=== PATIENT | male | born 1940 | race Caucasian/White ===

== ENCOUNTER 2017-07-22 08:24 | Outpatient (CLI) | payer MEDICARE, BC ==
[2017-07-22] MEDS ORDERED: Iopamidol 370 76% 100 ML VIAL ONE (11:39)
--- NOTE | 2017-07-22 11:39 | CT ---
CT OF ABDOMEN AND PELVIS: Date: 07-22-2017 Comparison: PET CT 02-08-17 History: Lymphoma. Technique: Serial axial CT imaging is obtained at 5 mm intervals from lung bases through the pubic sy mphysis with intravenous and oral contrast. Coronal reformatted imaging obtained. FINDINGS: The imaged lung bases are unremarkable. No free intraperitoneal air or fluid. There is no focal liver lesion. The gallbladder, pancreas, spleen, and adrenal glands are unremarkabl e. The spleen is normal in size, measuring up to 12.5 cm. Kidneys are unremarkable aside from an upper pole cyst on the right. There is small hiatal hernia. There is diverticulosis of the descending colon and sigmoid colon with no evidence for diverticulitis . No evidence for bowel inflammatory change or bowel obstruction. Appendix is unremarkable. The prior PET CT performed 02-08-17 demonstrated extensive retroperitoneal lymphadenopathy. On today's exam, there are multiple mildly prominent retroperitoneal lymph nodes, markedly improved when compar ed to the prior examination. There is an aortocaval node on axial image 41 measuring approximately 1 cm in short axis dimension, decreased from 2.8 cm on the prior exam. There is a soft tissue mass in the right lower quadrant mesentery on image 55, measuring approximatel y 1.4 cm in short axis dimension. This is markedly decreased in size when compared to the prior study , at which time this lesion measured 3.5 x 5.7 cm. No enlarged inguinal lymph nodes are present. No enlarged pelvic side wall nodes noted. Prior study demonstrated small volume free fluid in the pelvis which is no longer present. There is a tiny nodular density in the perirectal fat on axial image 85 measuring 5 mm posteriorly on the right , decreased in size when compared to the prior study at which time it measured in the 1 cm range. There is atherosclerotic calcification of the abdominal aorta and its branches. There is a focal area of stranding of the subcutaneous fat in the ventral abdomen anteriorly to the r ight of midline, suggesting an area of subcutaneous injection. There is a sclerotic lesion within the proximal right femur which is stable and likely on the basis o f a nonspecific small chondroid lesion, grossly unchanged when compared to study dating back to 7. There is multilevel lumbar spine degenerative change present. IMPRESSION: There is retroperitoneal lymphadenopathy and there is a right lower quadrant soft tissue mass, all im proved significantly since the prior examination, evidence of lymphoma with response to therapy. Cont inued follow up imaging is advised. POS: [facility]
== END 2017-07-22 08:25 | disposition home or self-care (01) ==
LOC: CT 08:24
PROVIDERS: ATTEND Internal Medicine Medical Oncology
DX: C83.33 Diffuse large B-cell lymphoma, intra-abdominal lymph nodes (principal); R59.0 Localized enlarged lymph nodes
CPT/HCPCS: 74177

== ENCOUNTER 2017-08-14 06:44 | Outpatient (CLI) | payer MEDICARE, BC ==
--- NOTE | 2017-08-14 10:47 | PET ---
PET SCAN WITH CT ATTENUATION CORRECTION: HISTORY: Large B cell lymphoma. COMPARISON: 07/23/16, 02/08/17. TECHNIQUE: PET scanning with CT attenuation correction is performed from the base of the brain to the proximal t highs following the intravenous administration of 11.47 mCi F18-FDG. FINDINGS: HEAD/NECK: There is interval development of increased FDG localization anterior to the upper cervical spine vert ebral bodies. This abnormal FDG localization appears to be in the prevertebral or retropharyngeal spa ce and has a maximum SUV ranging between 3.4-4.3. This abnormality is noted from C1-C3, as well as in the distal cervical spine/cervicothoracic junction. Better interrogation with postcontrast soft tiss ue neck CT is recommended. CHEST: No abnormal FDG localization. ABDOMEN: No abnormal FDG localization. The previously noted retroperitoneal hypermetabolic activity has resolv ed. PELVIS: The previously noted hypermetabolic activity adjacent to the right iliac artery is no longer evident. OSSEOUS STRUCTURES: No abnormal FDG localization in the osseous structures. IMPRESSION: 1. Interval response to therapy. The previously noted retroperitoneal hypermetabolic lymph nodes are no longer appreciated. 2. Interval development of hypermetabolic activity involving the prevertebral soft tissue in the upp er and lower cervical spine/cervicothoracic junction. Postcontrast soft tissue neck CT is recommended . POS: [facility]
== END 2017-08-14 06:45 | disposition home or self-care (01) ==
LOC: PET 06:44
PROVIDERS: ATTEND Internal Medicine Medical Oncology
DX: C85.90 Non-Hodgkin lymphoma, unspecified, unspecified site (principal); R93.8 Abnormal findings on diagnostic imaging of other specified body structures
CPT/HCPCS: 78815; A9552

== ENCOUNTER 2017-08-21 09:42 | Outpatient (CLI) | payer MEDICARE, BC ==
[2017-08-21] MEDS ORDERED: Iopamidol 370 76% 100 ML VIAL ONE (13:03)
== END 2017-08-21 09:43 | disposition home or self-care (01) ==
LOC: BICCT 09:42
PROVIDERS: ATTEND Internal Medicine Medical Oncology
DX: C85.90 Non-Hodgkin lymphoma, unspecified, unspecified site (principal)
CPT/HCPCS: 70492

== ENCOUNTER 2018-02-03 11:22 | Outpatient (CLI) | payer MEDICARE, BC ==
--- NOTE | 2018-02-03 14:39 | PET ---
PET CT SKULL TO MID THIGH: CLINICAL HISTORY: Diffuse B-cell lymphoma. COMPARISON: Reference is made to prior PET CT, 08/14/17; CT neck 08/21/17 also referenced. FINDINGS: There is appropriate biodistribution of radiotracer activity. No evidence of hypermetabolic adenopathy of the imaged neck, chest, abdomen, and pelvis. No hypermet abolic masses are seen. There is diffuse vascular calcification. Right chest port is in place. Right renal cyst formation i s seen. There is moderate retained fecal material throughout the colon without evidence of colonic d iverticulosis. IMPRESSION: No scintigraphic evidence of metabolically active lymphoma. Deauville criteria score of 1. POS: [facility]
== END 2018-02-03 11:23 | disposition home or self-care (01) ==
LOC: PET 11:22
PROVIDERS: ATTEND Internal Medicine Medical Oncology
DX: C83.33 Diffuse large B-cell lymphoma, intra-abdominal lymph nodes (principal)
CPT/HCPCS: 78815; A9552

== ENCOUNTER 2018-08-18 11:15 | Outpatient (CLI) | payer MEDICARE, BC ==
--- NOTE | 2018-08-19 09:19 | PET ---
PET CT FROM VERTEX OF SKULL THROUGH MID THIGH: INDICATION: History of lymphoma. COMPARISON: Prior PET CT dated 02/03/2018. RADIOPHARMACEUTICAL: 12.5 mCi of F18-FDG IV. TECHNIQUE: PET CT Was obtained from the vertex of the skull through the mid thighs following IV administration o f the radiopharmaceutical. The CT images were obtained for attenuation correction purposes only. FINDINGS: HEAD AND NECK: There is a mild region of mild hypermetabolic uptake involving the left palatine tonsil with a peak S UV activity of 4.85 and mean activity of 4.65. The peak background liver activity was 3.4 and 3.04. No additional hypermetabolic lymphadenopathy or mass is seen within the head and neck region. THORAX: No hypermetabolic mediastinal, hilar, or axillary lymphadenopathy is evident within the thorax. Ther e is mild bilateral male gynecomastia. No hypermetabolic pulmonary nodule or pleural effusion is dem onstrated. ABDOMEN AND PELVIS: No hypermetabolic mass or lymphadenopathy is evident within the abdomen. No hypermetabolic ascites i s present. SKIN AND OSSEOUS STRUCTURES: No hypermetabolic skin or osseous lesion is evident. There is a stable sclerotic lesion involving th e posterior right proximal femur that has been stable since 2016 and is suspicious for a low-grade ch ondroid lesion. There are scattered bone islands involving the axial skeleton. There is a stable co mpression abnormality of L2. IMPRESSION: 1. Deauville score of X. There is a mildly hypermetabolic region of increased activity involving th e left palatine tonsils which could be reactive in nature and not related to lymphoma. This was not present on the comparison examination. Recommend correlation with direct visualization and followup PET imaging. 2. No evidence of hypermetabolic lymphadenopathy is seen within the remaining aspects of the head an d neck, thorax, abdomen and pelvis, and skin and osseous structures. POS: [facility]
== END 2018-08-18 11:16 | disposition home or self-care (01) ==
LOC: PET 11:15
PROVIDERS: ATTEND Internal Medicine Medical Oncology
DX: C85.10 Unspecified B-cell lymphoma, unspecified site (principal); R94.8 Abnormal results of function studies of other organs and systems
CPT/HCPCS: 78815; A9552

== ENCOUNTER 2019-03-05 07:22 | Outpatient (CLI) | payer MEDICARE, BC ==
--- NOTE | 2019-03-05 09:50 | CT ---
CT OF THE CHEST AND ABDOMEN AND PELVIS WITH IV CONTRAST: INDICATION: Lymphoma. COMPARISON: PET CT dated 08/18/[address] of the chest, abdomen, and pelvis dated 04/14/2017. FINDINGS: Small sub-4 mm ground-glass nodule within the right lung apex is stable since 2017. No suspicious pu lmonary nodule is seen within the remaining visualized portions of the right upper lobe, right middle lobe, or right lower lobe. No suspicious pulmonary nodule is seen within the left lower lobe, lingu la, or left upper lobe. There is a right chest wall port in place. No pathologically enlarged lymph nodes are evident. No a xillary lymphadenopathy is evident. ABDOMEN AND PELVIS: No focal hepatic lesion is evident. Pancreas and adrenal glands are normal-appearing. The spleen me asures 12 cm in length. There is a stable 2.3 cm superior pole right renal cyst. Adrenal glands are normal-appearing. No free fluid or pathologically enlarged lymph nodes are evident. There are moderate calcifications involving the abdominopelvic vasculature. The bladder is decompressed. There are a few scattered diverticula involving the colon without evide nce of active diverticulitis. There is a normal retrocecal appendix. No pathologically enlarged lymph nodes are evident within the pelvis. No pathologically enlarged lym ph nodes are seen within the inguinal regions. There are fat-containing inguinal hernias bilaterally . There is a stable small sclerotic lesion measuring 1.6 cm within the proximal right femur likely refl ecting a small fiber osseous lesion. There are small bone islands within the left ileum and left sac rum. Compression abnormality of L2 is stable. Small bone island within L1 is stable. Left T5 bone island is stable. There is a bony hemangioma within the right aspect of T10 which is stable. IMPRESSION: No evidence of pathologically enlarged lymph nodes seen involving the chest, abdomen, and pelvis. POS: [facility]
[2019-03-05] MEDS ORDERED: ISOVUE-370 76%-LOCM 1 ML ONE (16:23)
== END 2019-03-05 07:23 | disposition home or self-care (01) ==
LOC: BICCT 07:22
PROVIDERS: ATTEND Internal Medicine Medical Oncology
DX: C85.90 Non-Hodgkin lymphoma, unspecified, unspecified site (principal)
CPT/HCPCS: 71260; 74177

== ENCOUNTER 2020-01-11 07:25 | Outpatient (CLI) | payer MEDICARE, BC ==
--- NOTE | 2020-01-11 08:43 | CT ---
CT CHEST AND ABDOMEN AND PELVIS WITH IV CONTRAST: Oral contrast was given. Multiplanar reconstruction. INDICATION: Staging lymphoma. COMPARISON: Comparison is made to CT chest, abdomen, and pelvis dated 03/05/2019. FINDINGS: CT CHEST: Lung sanchez are clear. No infiltrate or effusion. Mediastinum is unremarkable. No adenopathy. Osseous structures are unremarkable and stable. Small bone island within the T5 vertebra is stable and sclerosis along the inferior end plate of T7 is stab le. Degenerative changes in the spine appear unchanged. No axillary adenopathy. IMPRESSION: Unremarkable CT chest. No interval change. CT ABDOMEN AND PELVIS: Liver, spleen, and pancreas unremarkable. Stomach and duodenum unremarkable. Adrenal glands normal and stable. Kidneys unremarkable. A 2.3 cm cyst in the superior right kidney is stable. Small bowel loops appear normal. Colon unremarkable. Diverticulosis of the left colon again noted. No evidence of diverticulitis. Aorta normal caliber with atherosclerotic calcification. No evidence of abdominal or retroperitoneal adenopathy. Images through the pelvis show a contracted bladder. Prostate is unremarkable. The osseous structur es are stable. The sclerotic lesion in the proximal right femur is unchanged. Tiny bone islands in the left ileum and sacrum unchanged. Anterior wedge compression of the L2 vertebra is stable. Bone islands at L1 and L2 vertebrae appear unchanged. There is no evidence of inguinal adenopathy. IMPRESSION: Unremarkable CT abdomen and pelvis. No interval change. POS: [facility]
[2020-01-11] MEDS ORDERED: Iopamidol-370 76% 500 ML 1 ML ONE (15:27)
== END 2020-01-11 07:26 | disposition home or self-care (01) ==
LOC: BICCT 07:25
PROVIDERS: ATTEND Internal Medicine Medical Oncology
DX: C83.33 Diffuse large B-cell lymphoma, intra-abdominal lymph nodes (principal); D69.3 Immune thrombocytopenic purpura
CPT/HCPCS: 71260; 74177; 82565; Q9967

== ENCOUNTER 2021-06-21 07:20 | Outpatient (CLI) | payer MEDICARE, BC | END 2021-06-21 07:21 | disposition home or self-care (01) | LOC: BICCT 07:20 | PROVIDERS: ATTEND Internal Medicine Medical Oncology | DX: C83.33 Diffuse large B-cell lymphoma, intra-abdominal lymph nodes (principal); D69.3 Immune thrombocytopenic purpura | CPT/HCPCS: 71260; 74177 ==